=== PATIENT | female | born 1935 | race Asian ===

== ENCOUNTER → 2017-07-10 | Outpatient (REF) | payer MEDICARE, MEDICAID ==
[2017-07-10 19:18] LABS: RETIC HEMOGLOBIN CONTENT CHr 29.1 PG (24-36); RETICULOCYTE ABSOLUTE ADVIA212 72 x10(9)/L (17-77)
[2017-07-10 19:20] LABS: REASON FOR REVIEW COMPREHENSIVE REVIEW
[2017-07-15 00:06] LABS: SOLUBLE TRANSFERRIN RECEPTOR 16.5 nmol/L (12.2-27.3)
== END ==
LOC: M LAB REF 17:18
PROVIDERS: ATTEND Internal Medicine Medical Oncology
DX: D64.9 Anemia, unspecified (principal)